=== PATIENT | male | born 1985 | race Caucasian/White ===

== ENCOUNTER 2021-03-30 10:49 | Emergency (ER) | payer OTHER ==
[~2021-03-30] VITALS: Ht 182.8 cm; Wt 78.0 kg
[2021-03-30 11:42] LABS: BASOPHILS # (AUTO) 0.1 10^3/uL (0.0-0.1); BASOPHILS % (AUTO) 1 % (0-10); EOSINOPHILS # (AUTO) 0.1 10^3/uL (0.0-0.3); EOSINOPHILS % (AUTO) 1 % (0-10); HEMATOCRIT 47 % (40-54); HEMOGLOBIN 16.4 g/dL (13.3-17.7); LYMPHOCYTES % (AUTO) 15 % (12-44); MEAN CORPUSCULAR HEMOGLOBIN 32 pg (25-34); MEAN CORPUSCULAR HGB CONC 35 g/dL (32-36); MEAN CORPUSCULAR VOLUME 92 fL (80-99); MEAN PLATELET VOLUME 9.4 fL (9.0-12.2); MONOCYTES # (AUTO) 1.1 10^3/uL (0.0-1.0); MONOCYTES % (AUTO) 8 % (0-12); NEUTROPHILS # (AUTO) 9.6 10^3/uL (1.8-7.8); NEUTROPHILS % (AUTO) 75 % (42-75); PLATELET COUNT 338 10^3/uL (130-400); WHITE BLOOD COUNT 12.8 10^3/uL (4.3-11.0)
[2021-03-30] MEDS ORDERED: LIDOCAINE 2% VISCOUS 15 ML UDC PO ONE (11:45)
[2021-03-30] MEDS ORDERED: ANTACID SUSP 30 ML UDC (MYLANTA) PO ONE (11:45)
[2021-03-30 11:51] LABS: ALBUMIN 4.5 GM/DL (3.2-4.5)
--- NOTE | 2021-03-30 11:51 | ED Abdominal Pain ---
General Chief Complaint: Abdominal/GI Problems Stated Complaint: ABD PAIN Nursing Triage Note: Pt ambulatory into ER with complaint of Abdominal Pain x7 months. Pt states that it has worsened in the last week. Pt states that he vomits immediately after eating and drinking. States that he had a CT in the last few days and covid test at [facility] in [place] with both coming back negative. Pt rates pain at a 4/10 and states that it worsens as it progresses throughout day. Hx of ulcers. Source of Information: Patient Exam Limitations: No Limitations (LOLLY RODARTE APRN) History of Present Illness Date Seen by Provider: Mar 30, 2021 Time Seen by Provider: 11:50 Initial Comments To ER with reports of abdominal pain mid abdomen for 7 months worsened by eating any food or drinking even water. It wakes him up at night. He is never had an EGD but states that he has a history of ulcers. Had a CT which she believes was normal at [facility] 2 days ago. He is currently on sucralfate which does seem to be somewhat helpful. Prior to this he was on Protonix which did not seem to make much difference. He had an issue several years ago of some abdominal pain as well and he states that he had "peritonitis". He has had some weight loss secondary to not eating anything for the past few weeks. No fevers chills or diarrhea. Timing/Duration: 1-2 Days Severity/Quality: Moderate Location: Generalized Abdomen Radiation: No Radiation Activities at Onset: None Associated Symptoms: Denies Symptoms (LOLLY RODARTE APRN) Allergies and Home Medications Allergies Coded Allergies: No Known Drug Allergies (Unverified , 03/30/21) Home Medications Hydrocodone/Acetaminophen 1 Each Tablet, 1 TAB PO Q4H PRN for PAIN-MODERATE (5- 7) Prescribed by: LOLLY RODARTE on 03/30/21 1239 Mag Hydrox/Aluminum Hyd/Simeth 355 Ml Oral.susp, 30 ML PO BID Prescribed by: LOLLY RODARTE on 03/30/21 1238 Pantoprazole Sodium 40 Mg Tablet.dr, 40 MG PO DAILY Prescribed by: LOLLY RODARTE on 03/30/21 1238 Prednisone 10 Mg Tab.ds.pk, 10 MG PO DAILY Take 6 tabs(60mg)daily,decrease by 1 tab(10MG)daily. Prescribed by: LOLLY RODARTE on 03/30/21 1238 Sucralfate 1 Gm Tablet, 1 GM PO QID Prescribed by: LOLLY RODARTE on 03/30/21 1238 Patient Home Medication List Home Medication List Reviewed: Yes (LOLLY RODARTE APRN) Review of Systems Review of Systems Constitutional: see HPI EENTM: No Symptoms Reported Respiratory: No Symptoms Reported Cardiovascular: No Symptoms Reported Gastrointestinal: See HPI, Abdominal Pain, Nausea, Vomiting Genitourinary: No Symptoms Reported Musculoskeletal: no symptoms reported Skin: no symptoms reported Psychiatric/Neurological: No Symptoms Reported Endocrine: No Symptoms Reported Hematologic/Lymphatic: No Symptoms Reported (LOLLY RODARTE APRN) Past Lzsbnrn-Fudfle-Nlzfoh Hx Patient Social History Tobacco Use?: Yes Tobacco type used: Cigarettes Smoking Status: Current Everyday Smoker Use of E-Cig and/or Vaping dev: No Substance use?: Yes Substance type: Marijuana Substance frequency: Daily Alcohol Use?: No Pt feels they are or have been: No (LOLLY RODARTE APRN) Immunizations Up To Date Influenza Vaccine Up-to-Date: No; Not Current (LOLLY RODARTE APRN) Physical Exam Vital Signs Vital Signs - First Documented 03/30/21 10:55 Temp 36.8 Pulse 104 Resp 18 B/P (MAP) 120/84 (96) Pulse Ox 99 O2 Delivery Room Air (JIMMY BURDICK MD) Vital Signs Capillary Refill : Less Than 3 Seconds (LOLLY RODARTE APRN) Height/Weight/BMI Height: '" Weight: lbs. oz. kg; 23.00 BMI Method: General Appearance: WD/WN, no apparent distress, thin HEENT: PERRL/EOMI, normal ENT inspection Neck: non-tender, full range of motion Respiratory: no respiratory distress, no accessory muscle use Gastrointestinal: normal bowel sounds, soft, tenderness Extremities: normal range of motion, non-tender Neurologic/Psychiatric: alert, normal mood/affect, oriented x 3 Skin: normal color, warm/dry (LOLLY RODARTE APRN) Progress/Results/Core Measures Results/Orders Lab Results Laboratory Tests Test 03/30/21 11:30 03/30/21 12:20 Range/Units White Blood Count 12.8 H 4.3-11.0 10^3/uL Red Blood Count 5.11 4.30-5.52 10^6/uL Hemoglobin 16.4 13.3-17.7 g/dL Hematocrit 47 40-54 % Mean Corpuscular Volume 92 80-99 fL Mean Corpuscular Hemoglobin 32 25-34 pg Mean Corpuscular Hemoglobin Concent 35 32-36 g/dL Red Cell Distribution Width 12.3 10.0-14.5 % Platelet Count 338 130-400 10^3/uL Mean Platelet Volume 9.4 9.0-12.2 fL Immature Granulocyte % (Auto) 0 % Neutrophils (%) (Auto) 75 42-75 % Lymphocytes (%) (Auto) 15 12-44 % Monocytes (%) (Auto) 8 0-12 % Eosinophils (%) (Auto) 1 0-10 % Basophils (%) (Auto) 1 0-10 % Neutrophils # (Auto) 9.6 H 1.8-7.8 10^3/uL Lymphocytes # (Auto) 2.0 1.0-4.0 10^3/uL Monocytes # (Auto) 1.1 H 0.0-1.0 10^3/uL Eosinophils # (Auto) 0.1 0.0-0.3 10^3/uL Basophils # (Auto) 0.1 0.0-0.1 10^3/uL Immature Granulocyte # (Auto) 0.0 0.0-0.1 10^3/uL Sodium Level 141 135-145 MMOL/L Potassium Level 4.0 3.6-5.0 MMOL/L Chloride Level 104 98-107 MMOL/L Carbon Dioxide Level 23 21-32 MMOL/L Anion Gap 14 5-14 MMOL/L Blood Urea Nitrogen 16 7-18 MG/DL Creatinine 1.04 0.60-1.30 MG/DL Estimat Glomerular Filtration Rate 80 BUN/Creatinine Ratio 15 Glucose Level 105 70-105 MG/DL Calcium Level 10.1 8.5-10.1 MG/DL Corrected Calcium 9.7 8.5-10.1 MG/DL Total Bilirubin 0.5 0.1-1.0 MG/DL Aspartate Amino Transf (AST/SGOT) 11 5-34 U/L Alanine Aminotransferase (ALT/SGPT) 12 0-55 U/L Alkaline Phosphatase 81 40-136 U/L C-Reactive Protein High Sensitivity 0.86 H 0.00-0.50 MG/DL Total Protein 7.7 6.4-8.2 GM/DL Albumin 4.5 3.2-4.5 GM/DL Lipase 43 8-78 U/L Urine Color YELLOW Urine Clarity CLEAR Urine pH 6.0 5-9 Urine Specific Mobile 1.025 H 1.016-1.022 Urine Protein 1+ H NEGATIVE Urine Glucose (UA) NEGATIVE NEGATIVE Urine Ketones 1+ H NEGATIVE Urine Nitrite NEGATIVE NEGATIVE Urine Bilirubin NEGATIVE NEGATIVE Urine Urobilinogen 1.0 < = 1.0 MG/DL Urine Leukocyte Esterase NEGATIVE NEGATIVE Urine RBC (Auto) NEGATIVE NEGATIVE Urine RBC 0-2 /HPF Urine WBC NONE /HPF Urine Crystals PRESENT H /LPF Urine Amorphous Sediment MOD DIANE URATES H /LPF Urine Bacteria NEGATIVE /HPF Urine Casts NONE /LPF Urine Mucus LARGE H /LPF Urine Culture Indicated NO (JIMMY BURDICK MD) My Orders Orders - JIMMY BURDICK MD Ed Iv/Invasive Line Start (03/30/21 11:22) Cbc With Automated Diff (03/30/21 11:22) Comprehensive Metabolic Panel (03/30/21 11:22) Hs C Reactive Protein (03/30/21 11:22) Lipase (03/30/21 11:22) Ua Culture If Indicated (03/30/21 11:22) (JIMMY BURDICK MD) Medications Given in ED Current Medications Medications Dose Ordered Sig/Eliseo Route Start Time Stop Time Status Last Admin Dose Admin Al Hydrox/Mg Hydrox/Simethicone 30 ml ONCE ONCE PO 03/30/21 11:45 03/30/21 11:46 DC 03/30/21 11:52 30 ML Lidocaine HCl 15 ml ONCE ONCE PO 03/30/21 11:45 03/30/21 11:46 DC 03/30/21 11:52 15 ML (JIMMY BURDICK MD) Vital Signs/I&O 03/30/21 03/30/21 10:55 12:59 Temp 36.8 Pulse 104 74 Resp 18 16 B/P (MAP) 120/84 (96) 114/84 Pulse Ox 99 99 O2 Delivery Room Air Room Air (JIMMY BURDICK MD) Blood Pressure Mean: 96 Departure Communication (Admissions) NAME: GRETEL REA MED REC#: [id number] PT STATUS: REG ER : 1985 PHYSICIAN: LOLLY RODARTE APRN ADMIT DATE: 03/30/21/ER Draft Date of Exam:03/30/21 US GALLBLADDER [id number] PROCEDURE: US Gallbladder. TECHNIQUE: Multiple real-time grayscale images were obtained over the right upper quadrant in various projections. INDICATION: Vomiting. COMPARISON: None available. FINDINGS: The liver is normal in size and echogenicity. There is no focal hepatic mass. The main portal vein is patent with antegrade flow. The gallbladder is distended without gallstones, wall thickening, or pericholecystic fluid. The common bile duct measures up to 0.3 cm in diameter. No intrahepatic biliary dilation. The visualized portions of the pancreas are normal. Portions of the head and tail are obscured by overlying bowel gas. There is potential mild hydronephrosis with spleen of the renal sinus fat. No shadowing echogenic calculi. IMPRESSION: 1. Potential mild right hydronephrosis. This raises possibility of partially obstructing ureteral stone. Correlation for symptomatology determine if patient has flank pain, and if so CT of the abdomen and pelvis without contrast would be suggested for further assessment. 2. Otherwise, normal right upper quadrant ultrasound. Dictated on workstation # [id number] Dict: 03/30/21 1230 Trans: 03/30/21 1235 [id number] Interpreted by: NAZANIN BENOIT MD Electronically signed by: [id number] have reviewed the CT scan from [facility] that was obtained on 03/29/2021. This showed wall thickening of the duodenal bulb and first and second duodenal segments with surrounding inflammatory changes. Shotty mac hepatis lymph nodes likely reactive. No ascites or other acute findings. I will treat him conservatively with a clear liquid diet for 48 hours, Carafate and Protonix and refer to surgery for EGD. I made appointment for him with Dr Roth at 3:15 this 04/01/21 (LOLLY RODARTE APRN) Impression Primary Impression: Duodenitis Disposition: 01 HOME, SELF-CARE Condition: Stable Departure-Patient Inst. Decision time for Depature: 12:15 (LOLLY RODARTE APRN) Referrals: NO,LOCAL PHYSICIAN (PCP) Primary Care Physician EDIN ROTH DO Patient Instructions: Duodenal Ulcer (DC) Add. Discharge Instructions: Clear liquids for 24 to 48 hours. Take the acid reducers as directed in addition to the pain medication. Dr. Roth will likely schedule you for EGD procedure where a camera is inserted down your throat to look at the lining of the stomach and duodenum. You are to see Dr. Roth this the at 3:45 PM but they would like you to arrive at 3:15 PM. All discharge instructions reviewed with patient and/or family. Voiced understanding. Scripts Mag Hydrox/Aluminum Hyd/Simeth (Maalox Advanced Suspension) 355 Ml Oral.susp 30 ML PO BID, #355 ML Prov: LOLLY RODARTE APRN 03/30/21 Prednisone (Prednisone) 10 Mg Tab.ds.pk 10 MG PO DAILY, #21 EA Take 6 tabs(60mg)daily,decrease by 1 tab(10MG)daily. Prov: LOLLY RODARTE APRN 03/30/21 Sucralfate (Carafate) 1 Gm Tablet 1 GM PO QID, #40 TAB Prov: LOLLY RODARTE APRN 03/30/21 Pantoprazole Sodium (Protonix) 40 Mg Tablet.dr 40 MG PO DAILY, #30 TAB Prov: LOLLY RODARTE APRN 03/30/21 Hydrocodone/Acetaminophen (Hydrocodone-Acetamin 5-325 mg) 1 Each Tablet 1 TAB PO Q4H PRN for PAIN-MODERATE (5-7), #14 TAB Prov: LOLLY RODARTE APRN 03/30/21 ATTENDING PHYSICIAN NOTE: I was physically present as attending physician in the emergency department during the care of this patient, but I was not directly involved in the decision making or delivery of care for this patient. (JIMMY BURDICK MD) Copy Copies To 1: LAURIE HAMMOND PETER J APRN Mar 30, 2021 11:51 JIMMY BURDICK MD Mar 30, 2021 20:37
[2021-03-30 11:52] LABS: CALCIUM 10.1 MG/DL (8.5-10.1)
[2021-03-30 11:53] LABS: TOTAL PROTEIN 7.7 GM/DL (6.4-8.2)
[2021-03-30 11:55] LABS: BILIRUBIN,TOTAL 0.5 MG/DL (0.1-1.0)
[2021-03-30 11:57] LABS: CREATININE SERUM 1.04 MG/DL (0.60-1.30)
[2021-03-30 12:26] LABS: CLARITY,URINE CLEAR; COLOR,URINE YELLOW; GLUCOSE, URINE (UA) NEGATIVE (NEGATIVE); KETONES,URINE 1+ (NEGATIVE); LEUKOCYTE ESTERASE ,URINE NEGATIVE (NEGATIVE); NITRITE,URINE NEGATIVE (NEGATIVE); PROTEIN,URINE 1+ (NEGATIVE)
[2021-03-30 12:34] LABS: AMORPHOUS SEDIMENT,UR MOD AMOR URATES /LPF; BACTERIA,URINE NEGATIVE /HPF; BILIRUBIN,URINE NEGATIVE (NEGATIVE); RBC,URINE 0-2 /HPF
--- NOTE | 2021-03-30 12:35 | Diagnostic Imaging Report ---
PROCEDURE: US Gallbladder. TECHNIQUE: Multiple real-time grayscale images were obtained over the right upper quadrant in various projections. INDICATION: Vomiting. COMPARISON: None available. FINDINGS: The liver is normal in size and echogenicity. There is no focal hepatic mass. The main portal vein is patent with antegrade flow. The gallbladder is distended without gallstones, wall thickening, or pericholecystic fluid. The common bile duct measures up to 0.3 cm in diameter. No intrahepatic biliary dilation. The visualized portions of the pancreas are normal. Portions of the head and tail are obscured by overlying bowel gas. There is potential mild hydronephrosis with spleen of the renal sinus fat. No shadowing echogenic calculi. IMPRESSION: 1. Potential mild right hydronephrosis. This raises possibility of partially obstructing ureteral stone. Correlation for symptomatology determine if patient has flank pain, and if so CT of the abdomen and pelvis without contrast would be suggested for further assessment. 2. Otherwise, normal right upper quadrant ultrasound. Dictated by: Dictated on workstation # [id number]
[2021-03-30] MEDS ORDERED: SUCR1TAB36 PO (12:38)
[2021-03-30] MEDS ORDERED: PANT40TA2 PO (12:38)
[2021-03-30] MEDS ORDERED: PRED10TA22 PO (12:38)
[2021-03-30] MEDS ORDERED: ACHD5005 PO (12:38)
[2021-03-30] MEDS ORDERED: MAG355OR16 PO (12:38)
[2021-03-30 12:59] VITALS: BP 114/84
== END 2021-03-30 12:59 | disposition home or self-care (01) ==
LOC: EDUNIT# 10:49 → ER 10:53
DX: K29.80 Duodenitis without bleeding (principal); F17.210 Nicotine dependence, cigarettes, uncomplicated
CPT/HCPCS: 36415; 76705; 80053; 81000; 83690; 85025; 86141

== ENCOUNTER 2021-04-05 06:30 | Outpatient (RCR) | payer SELFPAY ==
[~2021-04-05] VITALS: Ht 182.9 cm; Wt 78.0 kg
[~2021-04-05 06:30] MED LIST: ACHD5005 PO; MAG355OR16 PO; PANT40TA2 PO; PRED10TA22 PO; SUCR1TAB36 PO
== END 2021-04-05 14:39 | disposition home or self-care (01) ==
LOC: PREOP 06:30
PROVIDERS: ATTEND Surgery
DX: Z01.818 Encounter for other preprocedural examination (principal)

== ENCOUNTER 2021-07-12 05:51 | Outpatient (RCR) | payer OTHER ==
[2021-07-12] MEDS ORDERED: HYDR-4132 PO (13:44)
== END 2021-07-12 15:28 | disposition home or self-care (01) ==
LOC: PREOP 05:51 → EDSTATUS 10:15 → PREOP 15:28
PROVIDERS: ATTEND Surgery
DX: Z01.818 Encounter for other preprocedural examination (principal)